=== PATIENT | female | born 1950 | race Caucasian/White ===

== ENCOUNTER 2021-05-03 06:05 | Day surgery (SDC) | payer MEDICARE, BC, SELFPAY ==
--- NOTE | 2021-04-30 13:28 | EKG12_ITS ---
Test Reason : PREOP Blood Pressure : / mmHG Vent. Rate : 070 BPM Atrial Rate : 070 BPM P-R Int : 152 ms QRS Dur : 080 ms QT Int : 412 ms P-R-T Axes : 067 047 039 degrees QTc Int : 444 ms Normal sinus rhythm Normal ECG Confirmed by GUERLINE ROBLERO, JUAN DIEGO ([id number]), design editor PRETTY SCOTT ([id number]) on 05/01/2021 1:43:15 PM Referred By: Bryce Sosa Confirmed By:JUAN DIEGO CUNHA MD
[2021-04-30 15:32] LABS: Hematocrit 40.4 % (37-47); Hemoglobin 12.6 g/dL (12.0-15.0); Mean Corp Hgb Conc 31.2 g/dL (32-36); Mean Corpuscular Hgb 27.9 pg (27.0-32.0); Mean Corpuscular Volume 89.4 fL (81-99); Mean Platelet Vol. 9.9 fl (6.2-12.0); Platelet Count 217 K/mm3 (150-450); RBC Distribution Width CV 14.4 % (11.6-14.6); RBC Distribution Width SD 47.1 fl (35.1-43.9); Red Blood Count 4.52 M/mm3 (4.2-5.4); White Blood Count 6.6 K/mm3 (4.4-11.0)
[2021-04-30 15:44] LABS: Prothrombin Time (Protime)PT. 12.2 SECONDS (11.7-14.9)
[2021-04-30 15:45] LABS: Partial Thromboplast Time 29.7 Seconds (24.1-36.2)
[2021-04-30 16:21] LABS: AST(SGOT) 31 U/L (15-37); Alanine Aminotransfer ALT/SGPT 44 U/L (13-56); Alkaline Phosphatase 113 U/L (45-117); Anion Gap 8 (5-15); BUN 27 mg/dL (7-18); BUN/Creat Ratio 18.2 RATIO (10-20); Calcium,Total 9.4 mg/dL (8.5-10.1); Chloride 105 mmol/L (98-107); Creatinine, Serum 1.48 mg/dL (0.55-1.02); EST Glomerular Filtration Rate 37 mL/min (>60); Est Glom Filt Rate - Afr Amer 45 mL/min (>60); Globulin 4.2 g/dL (2.2-4.2); Glucose 88 mg/dL (74-106); Protein, Total 8.2 g/dL (6.4-8.2); Sodium Level 139 mmol/L (136-145)
[2021-04-30 17:06] LABS: Hemoglobin A1c 5.8 % (3.8-5.6)
[2021-05-03] VITALS (9 sets, daily range): BP systolic 106–150; BP diastolic 56–76; PULSE 72–88; RESP 16–18; TEMP 36.1–36.7; O2SAT 92–100; BMI 34.7
[2021-05-03 06:46] LABS: Bedside Glucose 104 mg/dL (70-110)
[2021-05-03] MEDS: Lactated Ringers 1,000 ML 15 ML IV (06:59)
[2021-05-03] MEDS: Epinephrine (1 mg/ml) 1 MG/ML VIAL (08:55)
--- NOTE | 2021-05-03 11:30 | PCM.OPRPT ---
Report of Operation Date of Procedure: 05/03/21 Description of Surgical Findings:: Preoperative diagnosis: 1. Right shoulder rotator cuff tear 2. 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 Symptomatic right acromioclavicular arthrosis Postoperative diagnosis: 1. Right shoulder rotator cuff tear 2. 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 Symptomatic right acromioclavicular arthrosis Procedure: 1. Diagnostic and operative right shoulder arthroscopy with attempted arthroscopic rotator cuff repair, conversion to mini open rotator cuff repair 2. Right shoulder arthroscopic distal clavicle excision 3. Right shoulder arthroscopic debridement of labrum, capsular synovitis, subacromial bursitis Primary Surgeon: Bryce Sosa DO Trim Stencil Maker: HAMIDA Martinez Anesthesia: General LMA with interscalene block Anesthesiologist: Bakari Cohen MD Production Clerks Supervisor: KANDY Dial Complications: None apparent Specimen: None Estimated blood loss: 30 cc IV fluids: Per anesthesia record Urine output: None Packing/drains: None Implants: Arthrex 4.75 mm swivel lock anchor x3 Intraoperative findings: Extensive synovitis right shoulder, degenerative labral tearing, extensive right shoulder subacromial bursitis, Downsloping acromioclavicular joint, full-thickness retracted U-shaped tear of the supraspinatus and anterior most infraspinatus, chronic retracted long head biceps tendon tear. Preoperative indications: This is a 70-year-old female seen in the outpatient setting for right shoulder pain. She had profound weakness of her supraspinatus. MRI confirmed full-thickness rotator cuff tear. She also had symptomatic AC joint arthrosis, chronic long head of biceps tendon tear with retraction, subacromial bursitis. I recommended a right shoulder diagnostic and operative arthroscopy with rotator cuff repair and distal clavicle excision. We discussed at length the risks, benefits, alternatives the procedure. Risks included but were not limited to bleeding, infection, loss of life or limb, nonhealing tendon, persistent pain, persistent weakness, stiffness, need for prolonged immobilization, prolonged therapy, DVT or PE, risk of anesthesia, neurovascular injury, need for additional surgery. Patient expressed understanding these risks and wished to proceed with surgery. Description of procedure: Patient was identified in the preoperative holding area by name, medical record number, and date of . Informed consent was confirmed with the patient. The operative extremity was marked with a surgical marker. All questions were answered to the patient's satisfaction. An interscalene block was administered prior to the procedure by the anesthesia staff. At time of her procedure, patient was brought to the operative suite and positioned supine a standard operating table with a beachchair attachment. All bony prominences were well-padded. General anesthesia was induced and laryngeal mask airway placed. After the tube was secured, we elevated the head of the bed to position the patient into the beachchair position. A pillow was placed on the patient's legs. All bony prominences were well-padded. The nonoperative extremity was placed in a well arm hernandez. A strap was placed across the patient's torso and the butterfly attachment of the bed was removed to gain access to the posterior scapula. We then spun the bed approximately 45 degrees. We then prepped and draped the operative upper extremity in a normal, sterile orthopedic fashion. We performed a timeout with all parties in attendance in agreement with the side, site, and operation be performed. No concerns were voiced and we elected to proceed. 2 g Ancef was administered prior to the incision by anesthesia staff. I first outlined the bony landmarks of the shoulder. I established a standard posterior portal with an 11 blade scalpel. Blunt tipped trocar in cannula was inserted into the glenohumeral joint. The joint was insufflated with normal saline solution with epinephrine in the first 2 bags. Trocar was removed and diagnostic arthroscopy was commenced. There was significant synovitis and degenerative tearing of both the supraspinatus and labrum easily identifiable initially. I established a standard anterior portal with the assistance of a spinal needle under direct visualization just superior to the upper border of the subscapularis. Probing of the subscapularis as well as a posterior lever test revealed that the subscapularis appeared to be intact. The long of the biceps tendon was unable be identified which was seen on MRI due to a chronic avulsion. There was degenerative tearing of the glenoid labrum which appeared to be impinging in the glenohumeral joint. This was debrided with a radial resector. There was degenerative underside tearing of the supraspinatus also questionably impinging within the joint. This was debrided with a radial resector. There is an obvious full-thickness retracted tear of the supraspinatus. There is extensive synovitis in the rotator interval as well as the posterior glenohumeral joint. This was debrided to a level of healthy capsule with the radial resector and radiofrequency ablator. I then withdrew the arthroscope and cannula, reintroduced the blunt tipped trocar to the cannula and inserted into the subacromial space. I established a standard lateral portal with the assistance of a spinal needle and subsequent 11 blade scalpel. The radial resector was then introduced through the lateral portal and a subacromial bursectomy was performed as there was extensive bursitis in the subacromial space. The undersurface of the acromion was skeletonized with the radiofrequency ablator as well as peeling off the undersurface and attachment of the coracoacromial ligament. The acromioclavicular joint capsule was then identified and the inferior portion was released with the radiofrequency ablator. I then turned our attention to the supraspinatus tear. There was retraction of approximately 3 cm. The tear was U-shaped.. I proceeded with a planned double row repair. Two medial swivel lock anchors with fiber tapes were placed just lateral to the chondral surface of the humeral head. I passed the fiber tapes and attached FiberWire's to the supraspinatus using an antegrade suture passer. Sutures were all retrieved out the anterior portal. I then retrieved a limb of the anterior and posterior fiber tape as well as the posterior FiberWire. This was placed through the eyelet of a swivel lock anchor. I then attempted to punch for my swivel lock anchor approximately 1 cm lateral to the medial row. Bone was significantly osteopenic, so much so that the punch fell into the subchondral bone with just light pressure even without a mallet. I attempted several different spots to achieve better bony fixation. I placed the swivel lock anchor in standard fashion. Using the stay sutures I pulled traction and the suture anchor dislodged entirely. I reassembled the suture anchor and attempted a second punch several millimeters away. A similar loss of fixation was unfortunately encountered. Given the inability to adequately achieve fixation, I elected to convert to a mini open rotator cuff repair which would allow me to tie the medial row which would not have been achievable given the fiber tapes not fitting through the knot pusher. Prior to converting, I turned my attention to the distal clavicle. Approximately 8 mm of the distal clavicle was then excised with a 5.5 mm arthroscopic bur leaving the posterior and superior portions of the joint capsule intact. The subacromial space was then thoroughly lavaged. Arthroscopic instruments were removed. I then extended my lateral portal to perform a mini open approach, approximately 3 cm in length. I sharply dissected through the deltoid fascia. Wheat Navarro retractor was placed deep. I identified my medial row sutures and tied these sequentially. I then selected a single limb from the fiber tapes of both the anterior and posterior anchors and placed these through an eyelet of a swivel lock anchor, significantly more lateral and inferior than would have been achieved through an arthroscopic approach. This achieved excellent fixation and allow me to further compress over top of the rotator cuff tear. I then placed the arthroscope through the lateral incision and the rotator cuff appeared to be nearly anatomic without significant dogears. I thoroughly irrigated the wound. I closed the deeper layer with a watertight closure of the deltoid fascia with 0 Vicryl suture. Dermis was reapproximated with buried 3-0 Vicryl suture. Skin and portal sites sites were closed in interrupted [id number] fashion with 4-0 nylon suture. Sterile compression dressing was applied. Patient was then placed in UltraSling. She was able to be safely extubated in the operative suite. She was transferred to his gurney and subsequently to PACU in stable condition. Postoperative plan: Patient will be nonweightbearing to the operative extremity. She should maintain his sling at all times effort to shower. She may shower on postoperative day #2 if no significant drainage. She will follow up in approximately 2 weeks for suture removal. We will plan to initiate twice daily aspirin for DVT prophylaxis starting tomorrow. Patient has Percocet at home for postoperative analgesia. PT/OT was ordered given the patient's independent living status and her age, who are scheduled to see the patient in home tomorrow.
[2021-05-03 11:50] LABS: Bedside Glucose 122 mg/dL (70-110)
== END 2021-05-03 23:59 | disposition home or self-care (01) ==
LOC: SDC 06:08 → AC 06:08
PROVIDERS: Anesthesiology; Referring Provider Student in an Organized Health Care Education/Training Program; Visit Provider Student in an Organized Health Care Education/Training Program
PROC: (CPT 29827; principal; 2021-05-03 07:55)
DX: S46.011A Strain of muscle(s) and tendon(s) of the rotator cuff of right shoulder, initial encounter (principal); I11.0 Hypertensive heart disease with heart failure; E11.9 Type 2 diabetes mellitus without complications; S46.111A Strain of muscle, fascia and tendon of long head of biceps, right arm, initial encounter; S43.491A Other sprain of right shoulder joint, initial encounter; S40.011A Contusion of right shoulder, initial encounter; X58.XXXA Exposure to other specified factors, initial encounter; M19.011 Primary osteoarthritis, right shoulder; M75.51 Bursitis of right shoulder; N18.9 Chronic kidney disease, unspecified; D63.1 Anemia in chronic kidney disease; R23.3 Spontaneous ecchymoses; F41.9 Anxiety disorder, unspecified; E78.00 Pure hypercholesterolemia, unspecified; E66.8 Other obesity; Z71.3 Dietary counseling and surveillance; Z68.34 Body mass index [BMI] 34.0-34.9, adult; Z79.82 Long term (current) use of aspirin; Z79.84 Long term (current) use of oral hypoglycemic drugs; Z79.899 Other long term (current) drug therapy; Z53.39 Other specified procedure converted to open procedure
CPT/HCPCS: 29824; 29822; 01630; 64415; 36415; 80048; 80076; 82962; 83036; 85027; 85610; 85730; 93005; J7120; J0330; J2405

== ENCOUNTER → 2021-12-11 | Outpatient (CLI) | payer MEDICARE, BC, SELFPAY ==
--- NOTE | 2021-12-11 10:14 | CT_ITS ---
STUDY: CT RIGHT SHOULDER REASON FOR EXAM: Right glenohumeral osteoarthritis, surgical planning. TECHNIQUE: The patient was scanned in a multi detector CT scanner. High resolution transaxial imaging was performed without the administration of intravenous contrast material. Sagittal and coronal images were reconstructed. Individualized dose optimization techniques were used for this CT. COMPARISON: None. FINDINGS: There is glenohumeral osteoarthritis with joint space narrowing (axial images 31-55) and a small subchondral erosion of the superior glenoid (axial images 52, 53). There are anchors in the humeral head with periosteal reaction adjacent to the anterior aspect of the greater tuberosity (axial images 51-56). There is superior migration of the humeral head secondary to rotator cuff tear with pressure erosion of the inferior acromion (coronal reconstruction 75). Normal visualized lateral clavicle. There is no substantial acromioclavicular arthrosis. There is a Type I morphology (flat undersurface), with a neutral orientation. There is atrophy with fat replacement of the supraspinatus and infraspinatus muscles (sagittal reconstruction 65). There is a calcification in the infraspinatus muscle (sagittal reconstructions 77-80). CT/Extremity Upper without Contra IMPRESSION: Glenohumeral osteoarthritis. Superior migration of the humeral head secondary to rotator cuff tear with atrophy of the supraspinatus and infraspinatus muscles. Electronically Signed: Ronny Jacinto MD at 11:36 EDT ,
== END | disposition home or self-care (01) ==
PROVIDERS: PCP Internal Medicine; Referring Provider Student in an Organized Health Care Education/Training Program; Visit Provider Student in an Organized Health Care Education/Training Program
DX: M19.011 Primary osteoarthritis, right shoulder (principal); S46.011D Strain of muscle(s) and tendon(s) of the rotator cuff of right shoulder, subsequent encounter
CPT/HCPCS: 73200

== ENCOUNTER 2022-01-10 10:09 | Observation (INO) | payer MEDICARE, BC, SELFPAY ==
--- NOTE | 2022-01-04 11:01 | CASEMGMT ---
BEN QUARLES Assessment: TC to pt for initial transition planning/care coordination assessment. RN WILLAM introduced self and role at [facility], pt voices understanding and consents to assessment. Care providers, pharmacy, and demographics verified/updated. Admitting Dx: R total shoulder reverse PCP:Leslie Specialists:nga Sosa; elian Lopez in [place] Preferred Pharmacy: [facility] Retail Insurance: MCR, [employer] Prescription Benefit: yes LW/HPOA: Pt states she has a LW/DPOA and her son Vladimir Callahan is her DPOA. She is aware that she may bring in day of surgery to have scanned into her chart. LNOK: Vladimir Callahan, son Living Arrangements: Pt lives alone in a two story house with 1 step to enter with a rail. Pt states she lives on the main level. Pt denies concerns at home and reports she is I in ADL's currently. Transportation: Pt drives self and denies concerns with transportation. Pt states her dtr in law or neighbor can transport her post surgery. DME/HHC/SNF: Pt has [facility] with sufficient supplies, cane that she typically uses, a walker and 5-6 grab bars in the shower. Pt has had [facility] in the past and has been to [facility] when she had her back and hip surgery. Pt states she would like to go to [facility] again post surgery. Updated SW. Pt states no further concerns/needs. CM to follow. Advised pt to ask CM if any further question/concerns/needs arise, voices understanding. Pt Goal: [facility] Plan: TBD pending surgery and acceptance to [facility]
[2022-01-10] VITALS (12 sets, daily range): BP systolic 98–143; BP diastolic 47–78; PULSE 57–81; RESP 16–18; TEMP 36.1–36.9; O2SAT 96–100; BMI 36.0
[2022-01-10] MEDS: Lactated Ringers 1,000 ML 999 ML IV (06:22)
[2022-01-10] MEDS: Magnesium 2 GM IV (06:23)
[2022-01-10] MEDS: Acetaminophen 500 MG Tablet 1000 MG PO ×2 (06:24→14:14)
[2022-01-10] MEDS: Gabapentin 600 MG Tablet PO (06:24)
[2022-01-10 07:16] LABS: Bedside Glucose 110 mg/dL (74-106)
--- NOTE | 2022-01-10 07:30 | SHO_PTH ---
PATIENT: SIMONA GALLO LOC: MS3 U#:[id number] AGE/SX: 71/F ROOM: MS311 RE01/10/[address]: Dr. Bryce Sosa DO : 1950 BED: 1 DIS: 01/11/2022 SPEC #: [id number] RECD: 01/10/22 10:40 STATUS: GENNY KESHIA #: [id number] FABIAN: 01/10/22 07:[address]: Bryce Sosa DEPT: SURGICAL PATHOLOGY RECD BY: Roseline Jensen ENTERED: 01/10/22 11:11 SP TYPE: HUMERUS OTHR DR: Dr. Moni Nelson MD Tissues: Humerus, NOS Procedures: Decalcification bone/plaque Surgery Specimen Level IV HEADER OPERATION: ERAS, total shoulder replacement, reverse PRE-OP DIAGNOSIS: Primary osteoarthritis, right shoulder TISSUE SUBMITTED: Right humeral head MICROSCOPIC DIAGNOSIS Right humeral head, total shoulder replacement: Severe degenerative joint disease. AM:you 01/16/2022 MICROSCOPIC DESCRIPTION Slides are reviewed. GROSS DESCRIPTION Received is one container labeled with the patient's name and designated right humeral head. The specimen consists of a humeral head measuring 4 x 3 x 1.5 cm. The articular surface shows areas of erosion, eburnation and osteophyte formation. No soft tissue is identified. Insulation Hoseman sections are submitted in one cassette after decalcification. / DEXTER:you 01/10/2022 TC:5 CPT: 58358, 89113
[2022-01-10] MEDS: Cefazolin 2 GM in 0.9% Normal Saline 100 ML IV (07:35)
[2022-01-10] MEDS: TXA 1000mg in NS100 100ml (IVPB at Incision) 660 MG IV (07:45)
[2022-01-10] MEDS: TXA 1000mg in NS100 100ml (IVPB at Closure) 660 MG IV (09:37)
--- NOTE | 2022-01-10 10:20 | RAD_ITS ---
STUDY: X-RAY - RIGHT SHOULDER REASON FOR EXAM: Postoperative evaluation of right shoulder arthroplasty. TECHNIQUE: 2 view(s) of the shoulder. COMPARISON: CT images 12/11/2021. FINDINGS: There is a reverse right shoulder arthroplasty without evidence of complication. There is postoperative gas in the soft tissues. There is mild atelectasis at the right lung base. RAD/Shoulder min 2 Views IMPRESSION: Uncomplicated right shoulder arthroplasty. Electronically Signed: Ronny Jacinto MD at 11:15 EDT ,
--- NOTE | 2022-01-10 10:26 | PCM.OPRPT ---
Report of Operation Date of Procedure: 01/10/22 Description of Surgical Findings:: Preoperative diagnosis: Right shoulder rotator cuff arthropathy Postoperative diagnosis: Right shoulder rotator cuff arthropathy Procedure: Right reverse total shoulder arthroplasty Surgeon: Bryce Sosa DO Intermediate Accountant: Sherri Stephens PA-C Anesthesia: General endotracheal Anesthesiologist: Bakari Mack MD Complications: None apparent Drains: None Estimated blood loss: 200 cc Urinary output: None cc IV fluids: 800 cc crystalloid Specimens: None Surgical implants: Tornier Aequalis PerFORM+ reversed lateralized baseplate 25 mm diameter with +3 mm offset, standard glenosphere cobalt chrome 36 mm diameter, Tornier perform humeral system 1+ longstem, reversed insert thickness +0 size 1/2 36 mm diameter, 30 mm central 6.5 millimeter screw, 5.0 millimeter screws x4 - length 26, 30 and 14x2 Surgical indications: This is a 71-year-old female seen in the outpatient setting for a right rotator cuff tear. She underwent right shoulder arthroscopic rotator cuff repair requiring mini open approach due to poor suture anchor fixation with myself on 05/03/2021. Patient tolerated the procedure well without complication. In the postoperative rehab course, a retear of her rotator cuff was noted. Superior migration of the humeral head was noted patient had pseudoparesis of her right upper extremity due to massive rotator cuff tear. We discussed further nonoperative management. We discussed superior capsular reconstruction, subacromial balloon, and reverse shoulder arthroplasty. She did have degenerative changes along the undersurface of the acromion. Therefore, I recommended a reverse shoulder arthroplasty. We obtained a preoperative CT scan for planning. The risks, benefits, alternatives the procedure was reviewed with the patient and he agreed to proceed. Risks included but were not limited to bleeding, infection, instability, loss of life or limb, risk of anesthesia, neurovascular injury, persistent pain, stiffness, prolonged immobilization, need for additional surgery, loosening of orthopedic hardware. She expressed understanding and wished to proceed with surgery. Surgical details: Patient arrived to [facility] morning of the procedure and was greeted by the same day surgery staff. Prior to her procedure, I greeted the patient in the preoperative holding area I identified the patient by name, record number, and date of . Informed consent was confirmed. The operative extremity was marked. All questions were answered to patient satisfaction. Patient was also seen by anesthesia staff. Interscalene block was administered prior to procedure for postoperative analgesia. At time of her procedure, patient was brought to the operative suite and positioned supine on a standard table with a beachchair attachment. General anesthesia was induced after all bony prominences were well-padded. Endotracheal tube was placed. After adequate anesthesia and securing the tube, we prepared the patient to be positioned in the beachchair position. A well-padded head of talent management was applied. The nonoperative extremity was placed in a well arm hernandez. She was then brought into the beachchair position after we confirmed an appropriate blood pressure. We then spun the bed 45 degrees. The operative extremity was then prepared. Then the butterfly wing of the bed was removed and a well-padded torso strap was applied to secure the patient to the bed. The operative extremity was now free. We then prepped and draped the right upper extremity in normal, sterile orthopedic fashion. We then performed a timeout with all parties in attendance in agreement with the side, site, and operation be performed. 2 g Ancef was administered prior to incision by anesthesia staff, as well as 1 g TXA IV. Patient was MRSA positive preoperatively and was given nasal mupirocin in the outpatient setting, nasal Betadine day of surgery, and IV vancomycin was administered prior to the incision and continued throughout the procedure. No concerns were voiced and we elected to proceed. I first marked a standard deltopectoral incision just lateral to the coracoid process in line with the long axis of the humerus. Skin was sharply incised with 10 blade scalpel. I then dissected bluntly through the subcutaneous layers and found the fat stripe between the deltoid and pectoralis major. The cephalic vein was then identified and protected. It was retracted laterally with the deltoid. I then bluntly dissected underneath the deltoid with a Encarnacion elevator. Dolores retractor was placed. The upper 1 cm of the pectoralis major was released. Biceps was not present due to prior biceps tenotomy. Identified the greater and lesser tuberosities. The supraspinatus was completely torn and retracted with an exposed greater tuberosity. I then performed a subscapularis peel while rotating the humerus externally. I completed a circumferential capsular release to the level of the teres minor. I tagged the subscapularis for possible repair later with a tagging suture. I utilized the 135 degree cut guide to make a humeral head osteotomy. I trialed the size of the humeral stem collar to be a 1. I placed the central pin for the inlay reamer. During the process of reaming, retained suture anchors were encountered and were excised along with fiber tape suture. I then continued reaming to an appropriate depth. A size 1 and subsequently size 1+ long stem was trialed. The 1+ longstem achieved excellent axial and rotational stability. I then subluxed the humerus posteriorly. I then placed retractors around the posterior and anterior glenoid to expose the glenoid. Glenoid labrum was removed with Bovie cautery protecting the axillary nerve, which was in close proximity to the glenoid neck. We then used the custom guide from [employer] to position our centering pin. Guide was removed and pin was analyzed and compared to preoperative planning. It appeared to be in appropriate position. This was reamed minimally achieving a flat glenoid surface removing cartilage surface. We then remove the reamer and used the cannulated drill for the central 35 mm screw. Pin was removed. Post and baseplate was assembled on the back table. We then inserted the baseplate and central screw the assembled baseplate to an appropriate depth. A Sadorus was used to confirm depth. Bicortical screws were placed through all 4 holes of the baseplate with excellent purchase. The baseplate had excellent purchase and the entire scapula would rotate with rotation of the baseplate. We then impacted the 36 mm glenosphere with a standard eccentricity. Locking screw was then placed in the centering hole of the glenosphere with excellent purchase. We then removed retractors and turned our attention back to the humerus. A +0 polyethylene was then placed and the shoulder was reduced. I brought the shoulder through range of motion. There is excellent stability. There is excellent range of motion without evidence of bony impingement. A final dislocation of the trial was performed. Humeral implant was selected. Trial was removed. I copiously irrigated the wound and the humeral canal. Final stem was then impacted. +0 polyethylene was then placed and impacted engaging the locking mechanism. Final reduction was performed. Again, stability was excellent with excellent range of motion. I copiously irrigated the wound normal saline and a sterile Betadine solution. Hemostasis was excellent at this time. The axillary nerve was visualized and appeared to be intact. The subscapularis was then identified with a tagging suture. Repair would have been likely under undue tension and likely failed. I elected to not perform a subscapularis repair. We then copiously irrigated the wound with normal saline solution. We reapproximated the interval with 0 Vicryl suture. Subcutaneous layers were reapproximated with 2 -0 Vicryl suture. Skin was finally running V-Loc 3-0 Monocryl suture and Dermabond. A sterile silver Mepilex dressing was applied. Patient was then placed in a simple sling. Patient tolerated procedure well without complication. She was positioned back in the supine position extubated in the operative suite. She was transferred to the [facility] and subsequently to PACU in stable condition. Need for skilled visitor services assistant: Sherri Stephens PA-C was critical to the outcome of the case. During the course of the procedure the physician visitor services assistant played a vital role. Her intimate knowledge of my steps in the procedure aided in safe and expedient completion of the procedure. The PA played a vital role in positioning particularly in obtaining the appropriate positioning. The PA was also vital in the retraction of soft tissues during the exposure and protecting vital structures. The PA was also vital and protecting soft tissues during times of bony cuts. She also played a vital role in closure with my direct supervision. The PA was also important during reduction and dislocation of the joint and trials intraoperatively. Intraoperative medications: 2 g Ancef IV, 1 g TXA IV x2, IV vancomycin 1 g Post Operative Plan: Patient will be placed in observation overnight for early convalescence. Patient does live at home alone and will likely require placement. PT/OT ordered. Case management consult ordered. Weightbearing: Nonweightbearing left upper extremity, okay for pendulums. Range of motion of wrist elbow and hand as tolerated. Antibiotics: 2 g Ancef IV prior to incision DVT Prophylaxis: Aspirin 81 mg twice daily starting this evening Oglesby: None Dressing: Maintain silver dressing x7 days. Okay to shower dressing on started on day 4 X-Rays: 2 weeks postop in the office Pain Medication: Oxycodone Rx upon discharge Follow-up: 2 weeks post-operatively with me in the office
[2022-01-10 11:00] LABS: Bedside Glucose 125 mg/dL (74-106)
[2022-01-10] MEDS: Lactated Ringers 1,000 ML 125 ML IV (11:13)
[2022-01-10] MEDS: Lactated Ringers 1,000 ML 75 ML IV ×2 (11:45→23:00)
--- NOTE | 2022-01-10 13:36 | CON.PCM.HO_ITS ---
Assessment & Plan Assessment/Plan (1) Arthropathy of right shoulder: PLAN: Plan 71-year-old female admitted after elective right reverse total shoulder arthroplasty. 1. Right shoulder rotator cuff arthropathy with rotator cuff tear, decreased range of motion: Patient had a right reverse total shoulder arthroplasty by Dr. Sosa. Prior to that patient had right shoulder arthroscopy which showed MRSA. The patient had vancomycin 250 mg IV preop. We will continue IV vancomycin.Patient on IV cefazolin 1 g every 8 hourly. ID consult. 2. Diabetes mellitus type 2: Glucose is well controlled. Last Accu-Chek 125. 3. Hypertension: Blood pressure is on lower side 98/47, 107/23. Hold antihypertensive medication. In review of medical chart, it seems patient has acceptable blood pressure control 116/64 - 143/78 4. Dyslipidemia: Home medication on atorvastatin and Ezetimibe continued 5. Obstructive sleep apnea: CPAP ordered 6. CKD stage IIIb: Last BUN/creatinine in our system 17/05.48 on 04/2021. No recent labs. Labs BMP ordered She has a chronic comorbidities which include chronic stable asthma, anemia of chronic disease, anxiety and depression, chronic kidney disease HPI Consult Data Date of Consult: 01/10/22 HPI Narrative HPI Narrative: SIMONA GALLO, is a 71 F was admitted under orthopedic surgery for elective right reverse total shoulder arthroplasty on 01/10/2022. Patient has chronic inability to lift right arm. No numbness or tingling. Prior to that she had right shoulder arthroscopic and found to have MRSA from the operative culture of 12/30/2021. Patient returned to floor. Does not have right shoulder pain. Right shoulder under sling and swath. Surgical dressing is dry. Denies chest pain or shortness of breath. No dizziness. FOR[facility]LY [facility] Medical History Ambulates with cane Anemia Anxiety Arthritis Asthma COPD (chronic obstructive pulmonary disease) CPAP (continuous positive airway pressure) dependence Diabetes Easy bruising High cholesterol History of gastroesophageal reflux (GERD) History of herniated intervertebral disc History of stress test Hypertension Low iron Non-smoker Restless legs Wears glasses Home Medications acetaminophen 500 mg tablet 500 mg PO Q6H PRN Pain 04/27/21 [History Last Taken 01/09/22] albuterol 90 mcg/actuation aerosol inhaler 90 mcg inhalation Q4H PRN PRN breathing 04/27/21 [History Last Taken 01/09/22] amlodipine 5 mg tablet 5 mg PO DAILY BP 04/27/21 [History Last Taken 01/10/22] aspirin 325 mg capsule 325 mg PO DAILY heart health 04/27/21 [History Last Taken 01/03/22] atorvastatin 80 mg tablet 80 mg PO DAILY 04/27/21 [History Last Taken 01/09/22] cholecalciferol (vitamin D3) 125 mcg (5,000 unit) tablet (Vitamin D3) 125 mcg PO DAILY supplement 04/27/21 [History Last Taken 01/09/22] clonazepam 0.5 mg tablet 0.5 mg PO QHS sleep 04/27/21 [History Last Taken 01/09/22] clonazepam 1 mg tablet 1 mg PO DAILY anxiety 04/27/21 [History Last Taken 01/09/22] ezetimibe 10 mg tablet 10 mg PO DAILY cholester 04/27/21 [History Last Taken 01/09/22] ferrous sulfate 325 mg (65 mg iron) tablet 325 mg PO DAILY supplement 04/27/21 [History Last Taken 01/09/22] fluticasone furoate 27.5 mcg/actuation nasal spray,suspension 1 spray intranasal DAILY nasal congestion 04/27/21 [History Last Taken 01/09/22] lisinopril 5 mg tablet 5 mg PO DAILY BP 04/27/21 [History Last Taken 01/10/22] metformin 500 mg tablet 500 mg PO BID glucose control 04/27/21 [History Last Taken 01/09/22] metoprolol tartrate 25 mg tablet 25 mg PO BID BP 04/27/21 [History Last Taken 01/10/22] sertraline 100 mg tablet 200 mg PO DAILY anxiety 04/27/21 [History Last Taken 01/09/22] turmeric 400 mg capsule 400 mg PO DAILY inflamation 04/27/21 [History Last Taken 01/09/22] Allergy/AdvReac Type Severity Reaction Status Date / Time adhesive tape Allergy Other Verified 12/28/21 08:34 Penicillins Allergy Itching Verified 12/28/21 08:34 Sulfa (Sulfonamide Allergy Itching Verified 12/28/21 08:34 Antibiotics) Surgical History History of arthroscopy of right shoulder History of bilateral cataract extraction History of History of cholecystectomy History of colonoscopy History of dental surgery History of esophageal surgery History of right hip replacement History of sinus surgery History of tonsillectomy History of tubal ligation History of umbilical hernia repair Social History Smoking Status: Never smoker ROS ROS Narrative Constitutional: Denies fatigue and weakness. No fever HEENT: Reports systems reviewed and no addt'l complaints, except as documented Respiratory/Chest: Denies chest pain, shortness of breath at rest or with exertion Gastrointestinal: Denies coffee ground emesis, hematemesis or vomiting. Sometimes constipation. Genitourinary: Denies burning urination or new urinary tract symptoms Musculoskeletal: Chronic right shoulder arthritis, rotator cuff tear decreased active and passive range of motion. Neurologic: Denies seizure-like activity skin: No ulcer. No rash Endocrinology: Reports systems reviewed and no addt'l complaints, except as documented Hematologic/Lymphatic: Reports systems reviewed and no addt'l complaints, except as documented Rest 14 ROS are negative except as mentioned in HPI Physical Exam Narrative Physical exam General: Alert, Oriented x3, Cooperative HEENT: Atraumatic, PERRLA, EOMI, Normocephalic Oral: No Gingival or Mucosal Lesions/ Ulcerations Neck: Supple, No JVD, Negative Carotid Bruits Lungs: Air entry diminished in bilateral lung bases. No crepitation/rhonchi Cardiovascular: Regular rate, Regular Rhythm, Normal S1, Normal S2, No murmurs Abdomen: Bowel Sounds Present, Soft, Non Tender, Non-Distended : No renal angle tenderness. No suprapubic tenderness. Extremities: No edema, Capillary Refill Less than 3 Seconds Skin: No rashes, No breakdown Musculoskeletal: Right shoulder under sling and swath. Surgical dressing is dry. No Tenderness to Palpation of other joints or Extremities Neurological: Cranial nerves II-XII grossly intact, DTR 2+/4 and Symmetrical, N euro grossly intact Psych/Mental Status: Flat affect. Lab / Micro Data Labs: Laboratory Results - last 24 hr 01/10/22 05:59: POC Glucose 110 H 01/10/22 10:40: POC Glucose 125 H Radiology Impression Shoulder X-Ray 01/10/22 10:20 IMPRESSION: Uncomplicated right shoulder arthroplasty. Electronically Signed: Ronny Jacinto MD at 11:15 EDT , Charges/Coding Visit Charges Office Visits / Consults: 47391 OP Consult L4
[2022-01-10] MEDS: Cefazolin 1 GM/50 ML BAG IV ×2 (14:26→23:01)
[2022-01-10 16:45] LABS: Bedside Glucose 107 mg/dL (74-106)
[2022-01-10] MEDS: oxyCODONE 5 MG Tablet 2.5 MG PO (22:41)
[2022-01-10] MEDS: clonazePAM 0.5 MG Tablet PO (22:42)
[2022-01-10] MEDS: Ondansetron 4 MG/2 ML Vial IV (22:42)
[2022-01-10 23:30] LABS: Bedside Glucose 161 mg/dL (74-106)
[2022-01-11] VITALS (10 sets, daily range): BP systolic 110–137; BP diastolic 51–69; PULSE 62–91; RESP 16–18; TEMP 36.5–37.6; O2SAT 92–97
[2022-01-11] MEDS: oxyCODONE 5 MG Tablet 2.5 MG PO (04:35)
[2022-01-11] MEDS: Acetaminophen 500 MG Tablet 1000 MG PO ×2 (04:36→13:16)
[2022-01-11 05:58] LABS: Absolute Lymphocyte Count 0.82 X10^3/uL (0.83-4.51); Absolute Neutrophil Count 6.6 X10^3/uL (2.0-7.7); Basophil# 0.02 X10^3/uL; Basophil% 0.2 % (0-1); Hematocrit 31.1 % (37-47); Hemoglobin 9.6 g/dL (12.0-15.0); Lymphocyte # 0.82 X10^3/ul (0.83-4.51); Lymphocyte % 9.9 % (19-41); Mean Corp Hgb Conc 30.9 g/dL (32-36); Mean Corpuscular Hgb 28.6 pg (27.0-32.0); Mean Corpuscular Volume 92.6 fL (81-99); Mean Platelet Vol. 10.1 fl (6.2-12.0); Monocyte# 0.81 X10^3/uL; Monocyte% 9.8 % (0-10); NRBC Flagged by Analyzer 0 % (0-5); Neutrophil # 6.56 X10^3/uL (2.7-7.7); Neutrophil % 79.5 % (47-70); Platelet Count 153 K/mm3 (150-450); RBC Distribution Width CV 14.2 % (11.6-14.6); RBC Distribution Width SD 48.1 fl (35.1-43.9); Red Blood Count 3.36 M/mm3 (4.2-5.4); White Blood Count 8.3 K/mm3 (4.4-11.0)
[2022-01-11 06:30] LABS: Anion Gap 7 (5-15); BUN 19 mg/dL (7-18); BUN/Creat Ratio 14.2 RATIO (10-20); Calcium,Total 8.3 mg/dL (8.5-10.1); Chloride 109 mmol/L (98-107); Creatinine, Serum 1.34 mg/dL (0.55-1.02); EST Glomerular Filtration Rate 41 mL/min (>60); Est Glom Filt Rate - Afr Amer 50 mL/min (>60); Estimated Creatinine Clearance 29.57 ml/min; Glucose 150 mg/dL (74-106); Potassium 4.4 mmol/L (3.5-5.1); Sodium Level 140 mmol/L (136-145)
[2022-01-11 06:39] LABS: Phosphorus 3.1 mg/dL (2.5-4.9)
[2022-01-11 06:50] LABS: Bedside Glucose 144 mg/dL (74-106)
--- NOTE | 2022-01-11 07:39 | PCM.PN.HOSP ---
Subjective Subjective Follow-up for right shoulder arthroplasty Heart rate and blood pressure controlled. Patient is spontaneously voiding urine and passing flatus. Objective Data Objective Data Vital Signs: Vital Signs Temp Pulse Resp BP Pulse Ox O2 Del Method O2 Flow Rate 99.3 F H 89 16 137/69 H 97 Room Air 1 01/11/22 04:48 01/11/22 04:48 01/11/22 04:48 01/11/22 04:48 01/11/22 04:48 01/11/22 04:48 01/11/22 04:48 Oxygen Flow Rate (L/min) 1 Oxygen Delivery Method Room Air Weight: 197 lb Body Mass Index (BMI) 36.0 Intake & Output: Intake and Output for Last 24 Hours 01/09/22 01/10/22 01/11/22 23:59 23:59 23:59 Intake Total 3086.08 / 3086.08 Output Total 250 / 250 Balance 2836.08 / 2836.08 Lab / Micro Data Result Diagrams: 01/11/22 05:10 01/11/22 05:10 Labs: Laboratory Results - last 24 hr 01/10/22 10:40: POC Glucose 125 H 01/10/22 16:06: POC Glucose 107 H 01/10/22 23:05: POC Glucose 161 H 01/11/22 05:10: WBC 8.3, RBC 3.36 L, Hgb 9.6 L, Hct 31.1 L, MCV 92.6, MCH 28.6, MCHC 30.9 L, RDW Std Deviation 48.1 H, RDW Coeff of Darryn 14.2, Plt Count 153, MPV 10.1, Immature Gran % (Auto) 0.600, Neut % (Auto) 79.5 H, Lymph % (Auto) 9.9 L, [place] % (Auto) 9.8, Eos % (Auto) 0.0, Baso % (Auto) 0.2, Absolute Neuts (auto) 6.6, Absolute Lymphs (auto) 0.82 L, Nucleated RBC % 0 01/11/22 05:10: Sodium 140, Potassium 4.4, Chloride 109 H, Carbon Dioxide 24.0, Anion Gap 7, BUN 19 H, Creatinine 1.34 H, Estim Creat Clear Calc 29.57, Est GFR (MDRD) Af Amer 50 L, Est GFR (MDRD) Non-Af 41 L, BUN/Creatinine Ratio 14.2, Glucose 150 H, Calcium 8.3 L, Magnesium 2.0 01/11/22 05:10: Phosphorus 3.1 01/11/22 06:32: POC Glucose 144 H Radiography Diagnostic Testing: Radiology Impression Shoulder X-Ray 01/10/22 10:20 IMPRESSION: Uncomplicated right shoulder arthroplasty. Electronically Signed: Ronny Jacinto MD at 11:15 EDT , Physical Exam Narrative Physical exam General: Alert, Oriented x3, Cooperative HEENT: Atraumatic, PERRLA, EOMI, Normocephalic Oral: No oral sores. No Gingival or Mucosal Lesions/ Ulcerations Neck: Supple, No JVD, Negative Carotid Bruits Lungs: Air entry diminished in bilateral lung bases. No crepitation/rhonchi Cardiovascular: Regular rate, Regular Rhythm, Normal S1, Normal S2, No murmurs Abdomen: Bowel Sounds Present, Soft, Non Tender, Non-Distended : No renal angle tenderness. No suprapubic tenderness. Extremities: No edema, Capillary Refill Less than 3 Seconds Skin: No rashes, No breakdown Musculoskeletal: Right shoulder under sling and swath. Surgical dressing is dry. No Tenderness to Palpation of other joints or Extremities Neurological: Cranial nerves II-XII grossly intact, DTR 2+/4 and Symmetrical, Neuro grossly intact Psych/Mental Status: Flat affect. Assessment & Plan Assessment/Plan (1) Arthropathy of right shoulder: PLAN: Plan 71-year-old female admitted after elective right reverse total shoulder arthroplasty. 1. Right shoulder rotator cuff arthropathy with rotator cuff tear, decreased range of motion: Patient had a right reverse total shoulder arthroplasty by Dr. Sosa. Prior to that patient had right shoulder arthroscopy which showed MRSA. The patient had vancomycin 250 mg IV preop. We will continue IV vancomycin.Patient on IV cefazolin 1 g every 8 hourly. ID consult. 01/11: Discussed with surgeon Dr. Sosa and culture in the chart is of MRSA nasal screen.? Therefore, vancomycin IV and ID consult discontinued on 01/10. Patient is undergoing PT and OT. 2. Diabetes mellitus type 2: Glucose is well controlled. Last Accu-Chek 125. 01/11: Glucose is controlled 172 160 mg/dL. Labs reviewed. H&H 9.6/31%. Electrolytes in acceptable limit. 3. Hypertension: Blood pressure is on lower side 98/47, 107/23. Hold antihypertensive medication. In review of medical chart, it seems patient has acceptable blood pressure control 116/64 - 143/78 4. Dyslipidemia: Home medication on atorvastatin and Ezetimibe continued 5. Obstructive sleep apnea: CPAP ordered 6. CKD stage IIIb: Last BUN/creatinine in our system 17/05.48 on 04/2021. No recent labs. Labs BMP ordered 01/11: BUN/creatinine 09/05.34. It is better than April 2021. Avoid nephrotoxic medications She has a chronic comorbidities which include chronic stable asthma, anemia of chronic disease, anxiety and depression, chronic kidney disease Laboratory Results 01/10/22 16:06: POC Glucose 107 H 01/10/22 23:05: POC Glucose 161 H 01/11/22 05:10: WBC 8.3, RBC 3.36 L, Hgb 9.6 L, Hct 31.1 L, MCV 92.6, MCH 28.6, MCHC 30.9 L, RDW Std Deviation 48.1 H, RDW Coeff of Darryn 14.2, Plt Count 153, MPV 10.1, Immature Gran % (Auto) 0.600, Neut % (Auto) 79.5 H, Lymph % (Auto) 9.9 L, [place] % (Auto) 9.8, Eos % (Auto) 0.0, Baso % (Auto) 0.2, Absolute Neuts (auto) 6.6, Absolute Lymphs (auto) 0.82 L, Nucleated RBC % 0 01/11/22 05:10: Sodium 140, Potassium 4.4, Chloride 109 H, Carbon Dioxide 24.0, Anion Gap 7, BUN 19 H, Creatinine 1.34 H, Estim Creat Clear Calc 29.57, Est GFR (MDRD) Af Amer 50 L, Est GFR (MDRD) Non-Af 41 L, BUN/Creatinine Ratio 14.2, Glucose 150 H, Calcium 8.3 L, Magnesium 2.0 01/11/22 05:10: Phosphorus 3.1 01/11/22 06:32: POC Glucose 144 H 01/11/22 10:35: POC Glucose 134 H Charges/Coding Visit Charges Inpatient E&M: 19711 Subs Hosp L2
--- NOTE | 2022-01-11 07:43 | PCM.PN.ORT ---
Subjective Subjective Patient seen and examined at bedside this morning. She reports pain in her right shoulder, otherwise denies new symptoms. She feels the nerve block is worn off at this point. Denies fevers, chills, nausea vomiting, chest pain or shortness of breath. Has been urinating well without difficulty. Negative flatus or BM since admission. There was a question regarding a MRSA culture in the patient's chart. The MRSA culture was from a nasopharyngeal swab. Patient was treated with IV vancomycin during the surgical procedure to cover MRSA prophylaxis, there is no infection in the right shoulder. This was relayed to nursing staff and consulted hospitalist provider. Objective Data Objective Data Vital Signs: Vital Signs Temp Pulse Resp BP Pulse Ox O2 Del Method O2 Flow Rate 99.3 F H 89 16 137/69 H 97 Room Air 1 01/11/22 04:48 01/11/22 04:48 01/11/22 04:48 01/11/22 04:48 01/11/22 04:48 01/11/22 04:48 01/11/22 04:48 Oxygen Flow Rate (L/min) 1 Oxygen Delivery Method Room Air Weight: 197 lb Body Mass Index (BMI) 36.0 Intake & Output: Intake and Output for Last 24 Hours 01/09/22 01/10/22 01/11/22 23:59 23:59 23:59 Intake Total 3086.08 / 3086.08 Output Total 250 / 250 Balance 2836.08 / 2836.08 Lab / Micro Data Attestation: I reviewed the patient's lab results. Result Diagrams: 01/11/22 05:10 01/11/22 05:10 Labs: Laboratory Results - last 24 hr 01/10/22 10:40: POC Glucose 125 H 01/10/22 16:06: POC Glucose 107 H 01/10/22 23:05: POC Glucose 161 H 01/11/22 05:10: WBC 8.3, RBC 3.36 L, Hgb 9.6 L, Hct 31.1 L, MCV 92.6, MCH 28.6, MCHC 30.9 L, RDW Std Deviation 48.1 H, RDW Coeff of Darryn 14.2, Plt Count 153, MPV 10.1, Immature Gran % (Auto) 0.600, Neut % (Auto) 79.5 H, Lymph % (Auto) 9.9 L, [place] % (Auto) 9.8, Eos % (Auto) 0.0, Baso % (Auto) 0.2, Absolute Neuts (auto) 6.6, Absolute Lymphs (auto) 0.82 L, Nucleated RBC % 0 01/11/22 05:10: Sodium 140, Potassium 4.4, Chloride 109 H, Carbon Dioxide 24.0, Anion Gap 7, BUN 19 H, Creatinine 1.34 H, Estim Creat Clear Calc 29.57, Est GFR (MDRD) Af Amer 50 L, Est GFR (MDRD) Non-Af 41 L, BUN/Creatinine Ratio 14.2, Glucose 150 H, Calcium 8.3 L, Magnesium 2.0 01/11/22 05:10: Phosphorus 3.1 01/11/22 06:32: POC Glucose 144 H Radiography Diagnostic Testing: Radiology Impression Shoulder X-Ray 01/10/22 10:20 IMPRESSION: Uncomplicated right shoulder arthroplasty. Electronically Signed: Ronny Jacinto MD at 11:15 EDT , Physical Exam Narrative General - A&Ox3, NAD. VSS/AF. Right upper Extremity - SILT & 5/5 in radial, ulnar, musculocutaneous, axillary, and median nerve distributions. Radial, ulnar pulses 2+. Compartments soft and compressible. BCR in finger tips. Incisional dressing C/D/I. Sling in place Assessment & Plan Assessment/Plan (1) Arthropathy of right shoulder: PLAN: POD#1 s/p right reverse shoulder arthroplasty - Pain control -increased oxycodone to 5 mg p.o. every 4 hours as needed pain, continue scheduled Tylenol. P.o. ibuprofen added. - Medicine following for medical management - PT/OT -nonweightbearing right upper extremity. Okay for pendulums right shoulder. Okay for range of motion as tolerated of the right elbow hand and wrist. - DVT PPX -aspirin 81 mg twice daily, SCDs, early mobilization - Case management - D/C planning. Patient does live at home alone and is concerned about going home safely. Agree with SNF placement.
[2022-01-11] MEDS: Lisinopril 5 MG Tablet PO (08:29)
[2022-01-11] MEDS: clonazePAM 1 MG Tablet PO (08:29)
[2022-01-11] MEDS: Famotidine 20 MG Tablet PO (08:29)
[2022-01-11] MEDS: amLODIPine 5 MG Tablet PO (08:30)
[2022-01-11] MEDS: Ferrous Sulfate 325 MG Tablet PO (08:30)
[2022-01-11] MEDS: Sertraline 100 MG Tablet 200 MG PO (08:30)
[2022-01-11] MEDS: Ezetimibe 10 MG Tablet PO (08:30)
[2022-01-11] MEDS: Cholecalciferol (Vit D3) 125 MCG CAPSULE (5,000 UNITS) PO (08:30)
[2022-01-11] MEDS: Metoprolol Tartrate 25 MG Tablet PO (08:30)
[2022-01-11] MEDS: Aspirin 81 MG TAB.CHEW PO (08:30)
[2022-01-11] MEDS: Senna/Docusate Sodium 1 Tablet 2 TABLET PO (08:30)
[2022-01-11] MEDS: Atorvastatin Calcium 80 MG Tablet PO (08:31)
[2022-01-11] MEDS: Fluticasone 0.05% 1 SPRAY NASAL.SRY NASAL (08:31)
[2022-01-11] MEDS: oxyCODONE 5 MG Tablet PO (08:31)
--- NOTE | 2022-01-11 09:25 | CASEMGMT ---
Addendum entered by Idalia Calixto 01/11/22 12:06: Social Work Return call from Hortencia at [facility] and pt has been accepted and can be admitted when medically ready. SW met with pt and informed and pt is agreeable to discharge plan. Physician made aware and plans to discharge pt today. Pt states her son Vladimir will transport to facility. PASRR completed in [facility]. Plan: [facility], skilled level of care LASHELL Gee Original Note: Social Work SW met with pt and introduced self and role of SW. Pt states she lives alone and does not feel she can return home at this time. A list of SNF providers including quality and resource use data and consistent with the patient?s preferred geographic region, medical needs, and insurance network were provided from [facility]. Pts preferred provider is [facility]. VM left with Hortencia at [facility]. SW requested Soumya d/c economist research assistant, send referral via [facility]. Plan: [facility], pending acceptance LASHELL Sears
--- NOTE | 2022-01-11 09:32 | CASEMGMT ---
Discharge Basket Sorter Soumya jules/reggie assistant clinical director sent a referral via [facility] to [facility]. Will follow up. Plan: [facility], Waiting Acceptance Soumya Serrato Discharge Basket Sorter
[2022-01-11 11:00] LABS: Bedside Glucose 134 mg/dL (74-106)
--- NOTE | 2022-01-11 12:05 | CASEMGMT ---
BEN CM in to discuss ORDAZ form with patient. RN CM explained ORDAZ form, patient voiced understanding. Pt signed form and filed in chart. Pt provided with a copy of signed ORDAZ form. Patient had no further questions or concerns at this time.
--- NOTE | 2022-01-11 12:45 | TREXTCAR_ITS ---
Diet Diet Order/Speech Therapy: 01/10/22 16:10 Diet: Regular - General Is pt able to select menu?: Yes Routine Orders/Code Status Code Status: Full Code Wound(s) RIGHT SHOULDER: Wound Type: Surgical Incision Therapies Weight Bearing: Non weight bearing Extremity Affected:: Right Upper Physical Therapy: Eval and Treat Occupational Therapy: Eval and Treat Problem/Diagnosis (1) Arthropathy of right shoulder: Status: Acute Code(s): M19.011 - Primary osteoarthritis, right shoulder Plan: POD#1 s/p right reverse shoulder arthroplasty - Pain control -increased oxycodone to 5 mg p.o. every 4 hours as needed pain, continue scheduled Tylenol. P.o. ibuprofen added. - Medicine following for medical management - PT/OT -nonweightbearing right upper extremity. Okay for pendulums right shoulder. Okay for range of motion as tolerated of the right elbow hand and wrist. - DVT PPX -aspirin 81 mg twice daily, SCDs, early mobilization - Case management - D/C planning. Patient does live at home alone and is concerned about going home safely. Agree with SNF placement. Allergies/Procedures Done in Hospital Allergies adhesive tape Allergy (Verified 12/28/21 08:34) Other blisters Penicillins Allergy (Verified 12/28/21 08:34) Itching Sulfa (Sulfonamide Antibiotics) Allergy (Verified 12/28/21 08:34) Itching Type of Care/Length of Stay Estimated LOS: Convalescent Care Less Than 30 days Type of Care Needed: Skilled Rehab Potential: Good Prognosis: Good Additional Orders/Day of Discharge Day of Discharge: 01/11/22 Discharge Plan Admission Admit Date/Time: 01/10/22 10:09 Attending Provider: Bryce Sosa Primary Care Provider: Moni Nelson Consulting Providers: Arthur Palomares Instructions Additional Instructions / Restrictions: Follow preprinted instructions from your surgeons office. Discharge Orders/Prescriptions Prescriptions: New sennosides-docusate sodium [Stool Softener-Stimulant Laxat] 8.6-50 mg Tablet 2 tab PO BID 7 Days Qty: 28 0RF famotidine 20 mg Tablet 20 mg PO DAILY 14 Days Qty: 14 0RF ibuprofen 600 mg Tablet 600 mg PO Q8H PRN PRN (Reason: Pain Score 1-10) 14 Days Qty: 42 0RF oxycodone 5 mg Tablet 5 mg PO Q4H PRN PRN (Reason: Pain Score 4-10) 7 Days Qty: 42 0RF Continued metformin 500 mg Tablet 500 mg PO BID atorvastatin 80 mg Tablet 80 mg PO DAILY clonazepam 0.5 mg Tablet 0.5 mg PO QHS sertraline 100 mg Tablet 200 mg PO DAILY clonazepam 1 mg Tablet 1 mg PO DAILY amlodipine 5 mg Tablet 5 mg PO DAILY acetaminophen 500 mg Tablet 500 mg PO Q6H PRN (Reason: Pain) ferrous sulfate 325 mg (65 mg iron) Tablet 325 mg PO DAILY lisinopril 5 mg Tablet 5 mg PO DAILY albuterol 90 mcg/actuation Aerosol 90 mcg INHALATION Q4H PRN PRN (Reason: breathing) ezetimibe 10 mg Tablet 10 mg PO DAILY metoprolol tartrate 25 mg Tablet 25 mg PO BID fluticasone furoate 27.5 mcg/actuation [place],Suspension 1 spray INTRANASAL DAILY cholecalciferol (vitamin D3) [Vitamin D3] 125 mcg (5,000 unit) Tablet 125 mcg PO DAILY turmeric 400 mg Capsule 400 mg PO DAILY aspirin 325 mg Capsule 325 mg PO DAILY Referrals / Follow Up: Moni Nelson MD [Primary Care Provider] - Bryce Sosa DO [Med Staff - Active Staff] - Within 2 Weeks Disposition Disposition (needs filled in before D/C Order can be placed): Detention Facility
--- NOTE | 2022-01-11 12:46 | PCM.DC.SUM ---
Providers Date of Admission: 01/10/22 Primary Care Physician: Dr. Moni Nelson MD Consultations 01/10/22 10:11 Consult: Hospitalist Routine Consulting Provider: Arthur Palomares Reason for Consult: Post op total shoulder medical management EMERGENT Consult: No MD Notified: Yes Date Notified: 01/10/22 Time Notified: 11:25 Method of Notification: Text Reason For Visit: RT TOTAL SHOULDER REVERSE Diagnosis Discharge Diagnosis (1) Arthropathy of right shoulder: Status: Acute Code(s): M19.011 - Primary osteoarthritis, right shoulder Plan: POD#1 s/p right reverse shoulder arthroplasty - Pain control -increased oxycodone to 5 mg p.o. every 4 hours as needed pain, continue scheduled Tylenol. P.o. ibuprofen added. - Medicine following for medical management - PT/OT -nonweightbearing right upper extremity. Okay for pendulums right shoulder. Okay for range of motion as tolerated of the right elbow hand and wrist. - DVT PPX -aspirin 81 mg twice daily, SCDs, early mobilization - Case management - D/c SNF POD#1 Medications at Discharge Home Medications acetaminophen 500 mg tablet 500 mg PO Q6H PRN Pain 04/27/21 albuterol 90 mcg/actuation aerosol inhaler 90 mcg inhalation Q4H PRN PRN breathing 04/27/21 amlodipine 5 mg tablet 5 mg PO DAILY BP 04/27/21 aspirin 325 mg capsule 325 mg PO DAILY heart health 04/27/21 atorvastatin 80 mg tablet 80 mg PO DAILY 04/27/21 cholecalciferol (vitamin D3) 125 mcg (5,000 unit) tablet (Vitamin D3) 125 mcg PO DAILY supplement 04/27/21 clonazepam 0.5 mg tablet 0.5 mg PO QHS sleep 04/27/21 clonazepam 1 mg tablet 1 mg PO DAILY anxiety 04/27/21 ezetimibe 10 mg tablet 10 mg PO DAILY cholester 04/27/21 ferrous sulfate 325 mg (65 mg iron) tablet 325 mg PO DAILY supplement 04/27/21 fluticasone furoate 27.5 mcg/actuation nasal spray,suspension 1 spray intranasal DAILY nasal congestion 04/27/21 lisinopril 5 mg tablet 5 mg PO DAILY BP 04/27/21 metformin 500 mg tablet 500 mg PO BID glucose control 04/27/21 metoprolol tartrate 25 mg tablet 25 mg PO BID BP 04/27/21 sertraline 100 mg tablet 200 mg PO DAILY anxiety 04/27/21 turmeric 400 mg capsule 400 mg PO DAILY inflamation 04/27/21 famotidine 20 mg tablet 20 mg PO DAILY 14 days #14 tabs 01/11/22 ibuprofen 600 mg tablet 600 mg PO Q8H PRN PRN Pain Score 1-10 14 days #42 tabs 01/11/22 oxycodone 5 mg tablet 5 mg PO Q4H PRN PRN Pain Score 4-10 7 days #42 tabs 01/11/22 sennosides 8.6 mg-docusate sodium 50 mg tablet (Stool Softener-Stimulant Laxative) 2 tab PO BID 7 days #28 tabs 01/11/22 Hospital Course Summary of Care Provided Minutes Spent on Discharge: 15 Hospital Course: Patient underwent uncomplicated right reverse shoulder arthroplasty. She was placed in observation overnight for medical monitoring, therapy, and early convalescence. Patient does live at home alone require [facility] placement. This was improved on postoperative day #1. She encountered no medical or surgical complications throughout her stay. Internal medicine consult was placed during her stay for medical management. She worked well with physical and occupational therapies. She was safely discharged to [facility] on postoperative day #1. Physical Exam Narrative General - A&Ox3, NAD. VSS/AF. Right upper Extremity - SILT & 5/5 in radial, ulnar, musculocutaneous, axillary, and median nerve distributions. Radial, ulnar pulses 2+. Compartments soft and compressible. BCR in finger tips. Incisional dressing C/D/I. Sling in place Weight / BMI Weight Weight: 197 lb Body Mass Index (BMI) 36.0 ABG / Lab / Microbiology Data Result Diagrams: 01/11/22 05:10 01/11/22 05:10 Laboratory: Laboratory Results - last 24 hr 01/10/22 16:06: POC Glucose 107 H 01/10/22 23:05: POC Glucose 161 H 01/11/22 05:10: WBC 8.3, RBC 3.36 L, Hgb 9.6 L, Hct 31.1 L, MCV 92.6, MCH 28.6, MCHC 30.9 L, RDW Std Deviation 48.1 H, RDW Coeff of Darryn 14.2, Plt Count 153, MPV 10.1, Immature Gran % (Auto) 0.600, Neut % (Auto) 79.5 H, Lymph % (Auto) 9.9 L, [place] % (Auto) 9.8, Eos % (Auto) 0.0, Baso % (Auto) 0.2, Absolute Neuts (auto) 6.6, Absolute Lymphs (auto) 0.82 L, Nucleated RBC % 0 01/11/22 05:10: Sodium 140, Potassium 4.4, Chloride 109 H, Carbon Dioxide 24.0, Anion Gap 7, BUN 19 H, Creatinine 1.34 H, Estim Creat Clear Calc 29.57, Est GFR (MDRD) Af Amer 50 L, Est GFR (MDRD) Non-Af 41 L, BUN/Creatinine Ratio 14.2, Glucose 150 H, Calcium 8.3 L, Magnesium 2.0 01/11/22 05:10: Phosphorus 3.1 01/11/22 06:32: POC Glucose 144 H 01/11/22 10:35: POC Glucose 134 H Meaningful Use Info Meaningful Use Diagnoses (Choose all that apply): None applicable Discharge Plan Admission Admit Date/Time: 01/10/22 10:09 Attending Provider: Bryce Sosa Primary Care Provider: Moni Nelson Consulting Providers: Arthur Palomares Instructions Additional Instructions / Restrictions: Follow preprinted instructions from your surgeons office. Discharge Orders/Prescriptions Prescriptions: New sennosides-docusate sodium [Stool Softener-Stimulant Laxat] 8.6-50 mg Tablet 2 tab PO BID 7 Days Qty: 28 0RF famotidine 20 mg Tablet 20 mg PO DAILY 14 Days Qty: 14 0RF ibuprofen 600 mg Tablet 600 mg PO Q8H PRN PRN (Reason: Pain Score 1-10) 14 Days Qty: 42 0RF oxycodone 5 mg Tablet 5 mg PO Q4H PRN PRN (Reason: Pain Score 4-10) 7 Days Qty: 42 0RF Continued metformin 500 mg Tablet 500 mg PO BID atorvastatin 80 mg Tablet 80 mg PO DAILY clonazepam 0.5 mg Tablet 0.5 mg PO QHS sertraline 100 mg Tablet 200 mg PO DAILY clonazepam 1 mg Tablet 1 mg PO DAILY amlodipine 5 mg Tablet 5 mg PO DAILY acetaminophen 500 mg Tablet 500 mg PO Q6H PRN (Reason: Pain) ferrous sulfate 325 mg (65 mg iron) Tablet 325 mg PO DAILY lisinopril 5 mg Tablet 5 mg PO DAILY albuterol 90 mcg/actuation Aerosol 90 mcg INHALATION Q4H PRN PRN (Reason: breathing) ezetimibe 10 mg Tablet 10 mg PO DAILY metoprolol tartrate 25 mg Tablet 25 mg PO BID fluticasone furoate 27.5 mcg/actuation [place],Suspension 1 spray INTRANASAL DAILY cholecalciferol (vitamin D3) [Vitamin D3] 125 mcg (5,000 unit) Tablet 125 mcg PO DAILY turmeric 400 mg Capsule 400 mg PO DAILY aspirin 325 mg Capsule 325 mg PO DAILY Referrals / Follow Up: Moni Nelson MD [Primary Care Provider] - Bryce Sosa DO [Med Staff - Active Staff] - Within 2 Weeks Disposition Disposition (needs filled in before D/C Order can be placed): Custodial Facility
--- NOTE | 2022-01-11 14:13 | CASEMGMT ---
Social Work Pt ready for discharge today. PASRR completed in [facility] and sent along with orders and covid test to [facility] via the [facility]. With pt permission, phone call to pt's son Vladimir and informed that pt is ready for discharged. Vladimir states he will transport pt to [facility] but will not be here until around 4:30. Pt updated and agreeable to d/c plan. VM left for Hortencia at [facility] with discharge time. Nursing updated. Plan: [facility], skilled level of care LASHELL Sears
--- NOTE | 2022-01-11 15:55 | NURSING ---
This RN called [facility] to give report. This RN was able to speak to nurse, Alem, at the facility and she was receptive to the information. Pt's son will be picking her up to take her to [facility].
[2022-01-11 16:36] LABS: Bedside Glucose 109 mg/dL (74-106)
== END 2022-01-11 16:25 | disposition skilled nursing facility (03) ==
LOC: SDC 10:44 → MS3 10:44
PROVIDERS: Internal Medicine; Admitting Provider Student in an Organized Health Care Education/Training Program; PCP Internal Medicine; Visit Provider Student in an Organized Health Care Education/Training Program
PROC: (CPT 23472; principal; 2022-01-10 07:00)
DX: M19.011 Primary osteoarthritis, right shoulder (principal); J44.9 Chronic obstructive pulmonary disease, unspecified; E11.22 Type 2 diabetes mellitus with diabetic chronic kidney disease; N18.32 Chronic kidney disease, stage 3b; I12.9 Hypertensive chronic kidney disease with stage 1 through stage 4 chronic kidney disease, or unspecified chronic kidney disease; Z79.84 Long term (current) use of oral hypoglycemic drugs; E78.00 Pure hypercholesterolemia, unspecified; D63.8 Anemia in other chronic diseases classified elsewhere; Z79.82 Long term (current) use of aspirin; Z79.899 Other long term (current) drug therapy; G47.30 Sleep apnea, unspecified; E66.8 Other obesity; Z68.34 Body mass index [BMI] 34.0-34.9, adult
CPT/HCPCS: 23472; 01638; 64415; 36415; 73030; 80048; 82962; 83735; 84100; 85025; 87426; 88305; 88311; 96361; 96365; 96366; 96375; 97110; 97116; 97162; 97166; 97530; 97535; 99218; 99251; C1776; J7050; J7120; G0378; G0463; J2405